=== PATIENT | female | born 1985 | race Caucasian/White ===

== ENCOUNTER 2023-03-09 17:53 | Emergency (ER) | payer OTHER ==
[~2023-03-09] VITALS: Ht 157.5 cm; Wt 43.1 kg
[2023-03-09 18:12] VITALS: BP 118/82
[2023-03-09] MEDS ORDERED: SUBOXONE 8 MG-1 EACH SL (18:20)
[2023-03-09] MEDS ORDERED: Vibramycin100 MG PO (18:23)
== END 2023-03-09 19:10 | disposition home or self-care (01) ==
LOC: ER 17:53
DX: L03.116 Cellulitis of left lower limb (principal); L02.416 Cutaneous abscess of left lower limb; A64 Unspecified sexually transmitted disease; F11.90 Opioid use, unspecified, uncomplicated; Z79.899 Other long term (current) drug therapy
CPT/HCPCS: 99282; J0696

== ENCOUNTER 2024-06-26 03:58 | Emergency (ER) | payer OTHER ==
[~2024-06-26] VITALS: Ht 157.5 cm; Wt 45.4 kg
[~2024-06-26 03:58] MED LIST: SUBOXONE 8 MG-1 EACH SL; Vibramycin100 MG PO
[2024-06-26 04:28] VITALS: BP 136/93
[2024-06-26] MEDS ORDERED: Amoxicillin/Clavulanate K 875 MG Tab PO ONE (06:40)
[2024-06-26] MEDS ORDERED: Ibuprofen 600 MG Tab PO ONE (06:40)
[2024-06-26] MEDS ORDERED: IBUP600 PO (06:51)
[2024-06-26] MEDS ORDERED: AMOCLA875 PO (06:51)
[2024-06-26] MEDS ORDERED: FAMO20 PO (07:01)
== END 2024-06-26 07:50 | disposition home or self-care (01) ==
LOC: ER 03:58
DX: K04.7 Periapical abscess without sinus (principal); Z87.891 Personal history of nicotine dependence; Z79.899 Other long term (current) drug therapy
CPT/HCPCS: 81000; 99283; A9270

== ENCOUNTER 2024-10-24 15:59 | Emergency (ER) | payer OTHER ==
[~2024-10-24] VITALS: Ht 157.5 cm; Wt 45.4 kg
[~2024-10-24 15:59] MED LIST changes: +AMOCLA875 PO; +FAMO20 PO; +IBUP600 PO
[2024-10-24 16:20] VITALS: BP 114/81
[2024-10-24] MEDS ORDERED: AMOCLA875 PO (16:28)
== END 2024-10-24 16:29 | disposition home or self-care (01) ==
LOC: ER 15:59
DX: H66.43 Suppurative otitis media, unspecified, bilateral (principal); Z59.89 Other problems related to housing and economic circumstances; Z88.0 Allergy status to penicillin; Z88.6 Allergy status to analgesic agent; Z88.9 Allergy status to unspecified drugs, medicaments and biological substances
CPT/HCPCS: 99282